=== PATIENT | female | born 1945 | race Two or more races ===

== ENCOUNTER 2018-10-12 10:30 | Inpatient (IN) | payer OTHER ==
[~2018-10-12] VITALS: Ht 149.9 cm; Wt 85.3 kg
[2018-10-12] MEDS ORDERED: COZAAR25 MG PO (14:54)
[2018-10-12] MEDS ORDERED: ACTOS15 MG PO (14:54)
[2018-10-12] MEDS ORDERED: LIPITOR20 MG PO (14:55)
== END 2018-10-15 09:00 | disposition home or self-care (01) | DRG 741 ==
LOC: SURG 10-14 05:15 → SURH 10-14 05:15 → O/R 10-14 05:15 → CIR.AMB 10-14 06:00 → O/R 10-14 07:00 → SURH 10-14 10:30 → EDSTATUS 10-14 10:30 → SURH 10-14 18:45 → SURG 10-14 21:23 → O/R 10-14 21:23 → CIR.AMB 10-15 08:00 → O/R 10-15 09:00 → SURG 10-15 18:11
PROVIDERS: ADMIT Obstetrics & Gynecology Gynecologic Oncology
PROC: 0UT2FZZ Resection of Bilateral Ovaries, Via Natural or Artificial Opening With Percutaneous Endoscopic Assistance (ICD-10-PCS; 2018-10-14)
PROC: 0UT7FZZ Resection of Bilateral Fallopian Tubes, Via Natural or Artificial Opening With Percutaneous Endoscopic Assistance (ICD-10-PCS; 2018-10-14)
PROC: 0UT9FZZ Resection of Uterus, Via Natural or Artificial Opening With Percutaneous Endoscopic Assistance (ICD-10-PCS; principal; 2018-10-14 18:45)
DX: C54.1 Malignant neoplasm of endometrium (principal)